=== PATIENT | male | born 1975 | race Native Hawaiian/Other Pacific Islander ===

== ENCOUNTER → 2020-05-14 13:36 | Outpatient (CLI) | payer OTHER, SELFPAY ==
--- NOTE | 2020-05-14 | DI.ECHO.S_ITS ---
[facility] +---------+ : : [address] [place] : : : : [id number] : : : : Phone: [phone]---------+ Echocardiogram Report + + :Name: JEROME LAGOS Study Date: 05/14/2020 Height: 69 in : :[facility] Weight: 198 lb : : Gender: Male BSA: 2.1 m2 : :: 1975 Age: 44 yrs BP: 124/72 mmHg: :Reason For Study: CARDIAC CONDITION : :Ordering Physician: AMIE, : :PILY Performed By: Meaghan Lea : :Referring: PILY HOLLOWAY : + + Interpretation Summary Patient states history of CVA and PFO closure October of 2017. Color doppler in Apical and subcostal windows suggest left to right inter- atrial shunt. The left ventricle is normal in size and wall thickness. The ejection fraction is estimated to be 60-65%. The right ventricle is mildly dilated. The right ventricular systolic function is normal. No significant valvular pathology seen. The IVC is of normal diameter and collapses greater than 50% with a sniff. This suggests a low right atrial pressure of 3 mm Hg. Procedure: A two-dimensional transthoracic echocardiogram with color flow and Doppler was performed. The study quality was technically adequate. There is no prior echocardiogram noted for this patient. The patient was in normal sinus rhythm during the exam. Left Ventricle: The left ventricle is normal in size and wall thickness. There is no thrombus. A false chord is noted (normal variant). The ejection fraction is estimated to be 60-65%. There are no focal wall motion abnormalities. Diastolic parameters suggest a relaxation abnormality of the left ventricle, consistent with probable normal filling pressures. Right Ventricle: The right ventricle is mildly dilated. The right ventricular systolic function is normal. Atria: The left atrial size is normal. Right atrial size is normal. There is an interatiral closure device present. Doppler evidence suggests a left to right interatrial shunt. Mitral Valve: The mitral valve is normal in structure and function. Redundant elongated chordae are noted. There is trace mitral regurgitation. Aortic Valve: The aortic valve is trileaflet. The aortic valve opens well. There is no aortic valve stenosis. No aortic regurgitation is present. Tricuspid Valve: The tricuspid valve is normal in structure and function. Pulmonary artery pressures cannot be estimated because of the lack of a measurable TR jet velocity but the IVC suggests a CVP of around 3 mmHg. There is trace tricuspid regurgitation. Pulmonic Valve: The pulmonic valve leaflets are thin and pliable; valve motion is normal. There is no pulmonic valvular regurgitation. Great Vessels: The aortic root is normal size. The dimensions of the ascending aorta are normal. The IVC is of normal diameter and collapses greater than 50% with a sniff. This suggests a low right atrial pressure of 3 mm Hg. Pericardium/ Pleura There is no pericardial effusion. There is no pleural effusion. MMode/2D Measurements & Calculations LVIDd: 5.0 cm LVOT diam: 2.1 cm LVIDs: 3.3 cm Ao root diam: 3.2 cm FS: 33.7 % asc Aorta Diam: 3.3 cm EPSS: 1.4 cm Ao Arch Diam (Prox Trans): 3.0 cm IVSd: 1.0 cm LVPWd: 1.0 cm LV yates. diameter/BSA (cm/m^2): 2.4 LV sys. diameter/BSA (cm/m^2): 1.6 LA A2 area: 20.2 cm2 RA long axis: 4.9 cm LA A4 area: 16.6 cm2 RA area: 14.8 cm2 LA length (vol): 4.8 cm RA vol: 37.9 ml LA vol: 59.4 ml RA : 18.4 ml/m2 LA vol index: 28.9 ml/m2 IVC diam: 1.4 cm RVD1 (basal): 4.4 cm TAPSE: 2.1 cm Doppler Measurements & Calculations Ao V2 max: 141.8 cm/sec LVOT Max Adrien: 98.7 cm/sec Ao V2 mean: 95.4 cm/sec LV V1 max P.9 mmHg Ao max P.0 mmHg LV V1 VTI: 19.3 cm Ao mean P.2 mmHg DALI(I,D): 3.1 cm2 Ao V2 VTI: 21.8 cm DALI(V,D): 2.4 cm2 sev ratio: 0.89 DALI indexed to BSA (cm^2/m^2): 1.5 MV E max adrien: 57.9 cm/sec PA V2 max: 76.0 cm/sec MV A max adrien: 58.2 cm/sec PA V2 mean: 55.9 cm/sec MV E/A: 0.99 PA mean P.3 mmHg Med Peak E' Adrien: 7.1 cm/sec PA pr(Accel): 37.9 mmHg E/E' med: 8.2 Lat Peak E' Adrien: 11.8 cm/sec E/E' lat: 4.9 E/e' average: 6.5 MV dec time: 0.23 sec SV(LVOT): 66.5 ml Reading Physician:04:00 PM
== END ==
PROVIDERS: Referring Provider Physician Assistant; Visit Provider Physician Assistant
DX: I51.9 Heart disease, unspecified (principal)
CPT/HCPCS: 93306